=== PATIENT | male | born 1935 | race Caucasian/White ===

== ENCOUNTER → 2018-02-14 | Outpatient (CLI) | payer OTHER ==
[~2018-02-14] MED LIST: ASPI81EC; ATOR10; CITA20; ISOMON30; LISI20; METO50ER; SPIR25; [UNRECOGNIZED DRUG - REMARK]
== END | disposition home or self-care (01) ==
LOC: PLD 10:33 → LAB SHORT 10:33
DX: D22.62 Melanocytic nevi of left upper limb, including shoulder (principal)
CPT/HCPCS: 88305

== ENCOUNTER 2018-11-16 09:48 | Inpatient (IN) | payer OTHER ==
[~2018-11-16] VITALS: Ht 167.6 cm; Wt 80.8 kg
[2018-11-16 10:29] LABS: BASOPHILS ABSOLUTE AUTO 0.02 K/mm3 (0.00-0.23); BASOPHILS PERCENT AUTO 0 % (0-2); EOSINOPHILS PERCENT AUTO 0 % (0-6); Hematocrit 40.1 % (37.0-53.0); IMMATURE GRAN PERCENT AUTO 1 % (0-1); LYMPHOCYTES ABSOLUTE AUTO 0.47 K/mm3 (0.84-5.20); LYMPHOCYTES PERCENT AUTO 3 % (21-46); MONOCYTES ABSOLUTE AUTO 0.76 K/mm3 (0.16-1.47); MONOCYTES PERCENT AUTO 5 % (4-13); Mean Corpuscular HGB 29.6 pg (26.0-34.0); Mean Corpuscular HGB Conc 32.4 g/dL (31.5-36.5); Mean Corpuscular Volume 91 fL (80-100); Mean Platelet Volume 9.7 fL (9.1-12.4); NEUTROPHILS ABSOLUTE AUTO 13.25 K/mm3 (1.96-9.15); NEUTROPHILS PERCENT AUTO 91 % (41-73); Platelet Count 140 K/mm3 (150-400); RDW Standard Deviation 43.8 fL (35.1-46.3); Red Blood Cell Count 4.39 M/mm3 (4.30-5.90)
[2018-11-16 10:57] LABS: Albumin/Globulin Ratio 0.7 (0.8-1.8); Bilirubin, Total 0.7 mg/dL (0.1-1.0); Bun/Creatinine Ratio 16.2 (12.0-20.0); Calcium, Blood 8.9 mg/dL (8.5-10.1); Creatinine, Blood 1.91 mg/dL (0.60-1.20); Globulin, Blood 4.3 g/dL (2.2-4.0); Potassium, Blood 4.6 mmol/L (3.5-5.5); Total Protein, Blood 7.3 g/dL (6.4-8.2)
[2018-11-16 12:11] LABS: Influenza A Negative (NEGATIVE); Influenza B Negative (NEGATIVE)
[2018-11-16] MEDS ORDERED: PRAV20 PO (13:41)
[2018-11-16] MEDS ORDERED: Isosorbide Mono30 MG PO (13:41)
[2018-11-16] MEDS ORDERED: Vitamin D2000 UNIT PO (13:41)
[2018-11-16] MEDS ORDERED: RYTARY ER 23.71 EACH PO (13:42)
[2018-11-16] MEDS ORDERED: ESCI10 PO (13:42)
[2018-11-16] MEDS ORDERED: BACL10 PO (13:43)
[2018-11-16] MEDS ORDERED: TAMS.4ER PO (13:43)
[2018-11-16] MEDS ORDERED: Oyster Shell C500 MG PO (13:43)
[2018-11-16] MEDS ORDERED: Prinivil10 MG PO (13:44)
--- NOTE | 2018-11-16 16:45 | NUR ---
Initial Visit: Palliative Care Consult for Advanced Care Planning. Initial visit was when Pt was still in the ED. Pt is A&Ox1. Pt appears anxious rolling in bed and scooting himself up and down in the bed. When asked if he is having pain he does not respond. PAINAD score is 2/10 due to his constant movement and flailing. No moaning noted at this time. Spoke with Pt's ED nurse Regan and she reports Pt's has been admitted to the hospital as well. Pt transprted to medical floor shortly after initially seeing him. Spoke with Pt's Molly who is admitted to the hospital and discussed goals of care. Molly reports that she is willing to entertain the idea of a higher level of care and hospice but defers the helthcare decisions to Pt's daughter and son. Molly reports that Pt's daughter is currently in his room. Arrived to Pt's room and daughter Precious is present. Pt still disorientatated with a PAINAD score of 2/10. Engaged in therapeutic conversation regarding goals of care for Pt. Listened as daughter discussed Pt's current condition and how he has shown significant decline in the last week. Pt has been refusing food and fluids over the last couple of days. Pt's level of function has also declined and requires assistance with 6/6 ADL's. Educated Precious on disease process indluding current hospital admission diagnosis and prognosis with V/U made. Discussed and educated Precious on code status including risk factor of life sustaining measures. Precious reports that she would like some time to consider options. Discussed care options for Pt and Precious is agreeable to consider a higher level of care for Pt. She is unsure if he qualifies for medicaid and would like some assistance. She also reports that her mother would benefit from a higher level of care. NO other concerns reported at this time. Left message with transitions rn care coordinator Joana with concerns for Pt possibly needing a higher level of care. Plan: Precious will consider Pt's code status. Will place social service referral. Will remain available for therapeutic visits.
--- NOTE | 2018-11-16 17:26 | NUR ---
Late Entry from Previous visit. Pt's daughter Precious phone number [phone]. Pt's son Adarsh [phone]
--- NOTE | 2018-11-16 19:05 | NUR ---
PT NEW ADMIT TO ROOM 312 THIS PM. PT TRANSFERED TO BACK SINGH DUE TO CONFUSION. PT RESTING PEACEFULLY IN BED. CALL LIGHT IN REACH. BED ALARM ON. BED IN LOWEST POSITION. NO OTHER SIGNIFICANT CHANGES THIS SHIFT.
--- NOTE | 2018-11-16 23:21 | NUR ---
POS BLOOD CULT BLOOD CX CAME BACK POSITIVE FOR GRAM NEG BACILLI. PT IS RECIEVING ROCEPHIN ALREADY. PER PHARMACY, ROCEPHIN COVERS GRAM NEG BACILLI.
--- NOTE | 2018-11-17 02:57 | NUR ---
BLADDER SCAN PT IS RESTLESS, AGITATED. ABDOMEN DISTENDED. NO VOID SINCE START OF SHIFT. BLADDER SCAN SHOWS >694 ML. PLACED CALL TO HOSPITALIST FOR ONE TIME STRAIGHT CATH. OUTPUT OF 1200 ML. RECHECK BLADDER SCAN AT 6 HR MARIO, 0800.
[2018-11-17 05:17] LABS: BASOPHILS ABSOLUTE AUTO 0.02 K/mm3 (0.00-0.23); BASOPHILS PERCENT AUTO 0 % (0-2); EOSINOPHILS PERCENT AUTO 0 % (0-6); Hematocrit 36.1 % (37.0-53.0); Hemoglobin 11.8 g/dL (13.5-17.5); IMMATURE GRAN ABSOLUTE AUTO 0.08 K/mm3 (0.00-0.10); IMMATURE GRAN PERCENT AUTO 1 % (0-1); LYMPHOCYTES ABSOLUTE AUTO 0.66 K/mm3 (0.84-5.20); LYMPHOCYTES PERCENT AUTO 5 % (21-46); MONOCYTES ABSOLUTE AUTO 0.69 K/mm3 (0.16-1.47); MONOCYTES PERCENT AUTO 5 % (4-13); Mean Corpuscular HGB 29.9 pg (26.0-34.0); Mean Corpuscular HGB Conc 32.7 g/dL (31.5-36.5); Mean Corpuscular Volume 91 fL (80-100); Mean Platelet Volume 10.3 fL (9.1-12.4); NEUTROPHILS ABSOLUTE AUTO 11.23 K/mm3 (1.96-9.15); NEUTROPHILS PERCENT AUTO 89 % (41-73); Platelet Count 117 K/mm3 (150-400); RDW Standard Deviation 42.7 fL (35.1-46.3); Red Blood Cell Count 3.95 M/mm3 (4.30-5.90); White Blood Cell Count 12.68 K/mm3 (4.00-11.30)
[2018-11-17 05:37] LABS: Bun/Creatinine Ratio 19.5 (12.0-20.0); Calcium, Blood 8.5 mg/dL (8.5-10.1); Creatinine, Blood 1.85 mg/dL (0.60-1.20); Potassium, Blood 3.9 mmol/L (3.5-5.5)
--- NOTE | 2018-11-17 06:34 | NUR ---
SHIFT SUMMARY: PT RESTLESS AND AGITATED AT START OF SHIFT, UNABLE TO VOID AND RETAINING URINE. BLADDER SCAN SHOWS 694 ML. PRN STAIGHT CATH 1X; OUTPUT OF 1200 ML. PT HAS BEEN SLEEPING SINCE STRAIGHT CATH. LACY VEST IN PLACE PT IMPULSIVE AND FALL RISK. LR RUNNING @ 100 ML/HR X 2 BAGS. PT COMPLETING 1ST BAG. WILL CONT TO MONITOR AND PROVIDE CARE.
[2018-11-17 15:31] LABS: Source, Urine Catheter
[2018-11-17 15:51] LABS: Appearance, Urine Turbid (Clear); Bilirubin, Urine Neg (Neg); Blood, Urine 5+ (Neg); Color, Urine Yellow (P-Yellow); Glucose Qualitative, Urine Neg (Neg); Ketones, Urine Neg (Neg); Leukocyte Esterase, Urine 3+ (Neg); Nitrite, Urine Neg (Neg); Protein, Urine 3+ (Neg); Urobilinogen, Urine NORM (Normal)
[2018-11-17 16:07] LABS: White Blood Cells, Urine TNTC /hpf (0-5)
[2018-11-17 16:08] LABS: Bacteria Few /hpf; Squamous Epithelial Cells Not Seen /hpf (Few)
--- NOTE | 2018-11-17 16:48 | NUR ---
POLST POLST SIGNED BY DR CAMPOS, COPIES MADE AND ON CHART, PINK COPY PLACED WITH BELONGINGS AND FAXED TO [facility].
[2018-11-17] MEDS ORDERED: RYTARY ER 36.21 EACH PO (18:03)
--- NOTE | 2018-11-17 18:46 | NUR ---
SHIFT SUMMARY PT AXO TO SELF AND FAMILY. NO ACUTE CHANGES THIS SHIFT, LR RUNNING AT 100ML/HR PER EMAR. BLADDER SCAN REVEALED 406 ML IN. STRAIGHT CATH GOT 680 ML OUT. URINE SENT TO LAB. MED REC COMPLETE, DR CAMPOS AWARE. BED IN LOW POSITION, CALL LIGHT WITHIN REACH. PT IN LACY FOR CONFUSION.
[2018-11-18 05:23] LABS: BASOPHILS ABSOLUTE AUTO 0.01 K/mm3 (0.00-0.23); BASOPHILS PERCENT AUTO 0 % (0-2); EOSINOPHILS PERCENT AUTO 1 % (0-6); Hematocrit 37.1 % (37.0-53.0); Hemoglobin 11.9 g/dL (13.5-17.5); IMMATURE GRAN ABSOLUTE AUTO 0.05 K/mm3 (0.00-0.10); IMMATURE GRAN PERCENT AUTO 1 % (0-1); LYMPHOCYTES ABSOLUTE AUTO 0.76 K/mm3 (0.84-5.20); LYMPHOCYTES PERCENT AUTO 9 % (21-46); MONOCYTES ABSOLUTE AUTO 0.73 K/mm3 (0.16-1.47); MONOCYTES PERCENT AUTO 8 % (4-13); Mean Corpuscular HGB 29.8 pg (26.0-34.0); Mean Corpuscular HGB Conc 32.1 g/dL (31.5-36.5); Mean Corpuscular Volume 93 fL (80-100); NEUTROPHILS ABSOLUTE AUTO 7.34 K/mm3 (1.96-9.15); NEUTROPHILS PERCENT AUTO 82 % (41-73); Platelet Count 124 K/mm3 (150-400); RDW Coefficient Variation 13.2 % (11.7-14.2); RDW Standard Deviation 45.3 fL (35.1-46.3); White Blood Cell Count 8.99 K/mm3 (4.00-11.30)
[2018-11-18 05:40] LABS: Bun/Creatinine Ratio 22.2 (12.0-20.0); Calcium, Blood 8.5 mg/dL (8.5-10.1); Creatinine, Blood 1.94 mg/dL (0.60-1.20); Potassium, Blood 3.9 mmol/L (3.5-5.5)
--- NOTE | 2018-11-18 06:34 | NUR ---
SHIFT SUMMARY: PT IS IN LACY VEST TO PREVENT FALLS, IMPULSIVE AND DOES NOT USE CALL LIGHT. ALERT TO SELF AND SURROUNDINGS. ABLE TO FOLLOW DIRECTIONS AND ANSWER Q'S APPROP. TELE IN PLACE; Olivia liu BBB @ 115. RESP E/U ON RA; LS DIM. PT IS HAVING LOOSE STOOL; THIS IS DAY 2. BLADDER SCAN REVEALS 495 ML. PRN STRAIGHT CATH DONE; 600 ML OUT. POST VOID RESIDUAL OF 54 ML. 1 PER ASSIST TO BSC. MEDS WHOLE c WATER. NO OTHER CHANGES TO REPORT. WILL CONT TO MONITOR AND PROVIDE CARE.
--- NOTE | 2018-11-18 19:05 | NUR ---
SHIFT SUMMARY PT AXO TO SELF, FOLLOWING DIRECTIONS, FAMILY MEMBERS, THOUGH ILIAMNA AND AGGITATED AT TIMES. PT CONTINUES TO REQUIRE LACY FOR ATTEMPTS OOB. IV PATENT AND SALINE LOCKED. PT RUNNING A-FIB ON TELE WITH RATE FROM 120-140'S. SPAR FINISHER CALLED NURSE TO NOTIFY OF RATE THIS AFTERNOON. NURSE THEN CALLED SURVEILLANCE SENSOR OFFICER TO INQUIRE ABOUT RATE AND RHYTHM. AT 181, PT WAS AFIB AT [address] CAMPOS CALLED AT 181 AND THEN AT 182, NEW ORDERS INITIATED. CHARGE NURSE AP MIRANDA NOTIFIED AT 182. CHARGE AND NURSE LOOKED AT PT'S HISTORY AND EKG FROM ADMISSION TO FIND OUT THAT A-FIB IS NEW FOR THIS PATIENT. WHEN CALLING THE SURVEILLANCE SENSOR OFFICER TO FIND OUT WHEN PT CONVERTED, HE STATED THAT THE PT CONVERTED FROM NORMAL SINUS RHYTHM TO A-FIB ON 11/17/18 AT 0241 AND THAT HE DID NOT NOTIFY THE RN AT THAT TIME. RN MAUDE CONFIRMED THAT SHE WAS NOT NOTIFIED. SURVEILLANCE SENSOR OFFICER WAS INES HENRY. THIS SITUATION EXPLAINED TO INSPECTOR OUTSIDE PRODUCTION NURSE WHO ASSUMED CARE AT THAT TIME. BED IN LOW POSITION, CALL LIGHT WITHIN REACH, BED ALARM ON.
--- NOTE | 2018-11-18 19:09 | NUR ---
ON 11/17 @ 0241 PT CONVERTED FROM NSR TO ATRIAL FIBRILLATION VIA TELEMETRY. THIS RN WAS NOT NOTIFIED OF THIS CHANGE.
--- NOTE | 2018-11-18 19:52 | NUR ---
PT BP IS 85/38 c PM VITAL SIGNS. PT IS IN NEW ONSET A FIB c BBB @ 125-130'S. METOPROLOL IS ORDERED TONIGHT FOR RATE CONTROL, BUT BP IS NOT WITHIN PARAMETERS TO GIVE. ATTEMPTED TO PLACE CALL TO HOSPITALIST FOR FURTHER ORDERS; AWAITING CALL FROM DR FERNANDEZ.
--- NOTE | 2018-11-18 20:43 | NUR ---
ATTEMPTED TO CALL HOSPITALIST A 2ND TIME. STILL AWAITING CALL.
--- NOTE | 2018-11-18 22:27 | NUR ---
REACHED DR FERNANDEZ TO REPORT BP. ORDERED 500 CC FLUID BOLUS AND RECHECK BP AFTER. METOPROLOL TO BE HELD THIS PM.
--- NOTE | 2018-11-18 23:31 | NUR ---
FLUID BOLUS COMPLETE. BP RECEHCK IS NOW 117/57. WILL CONT TO MONITOR
[2018-11-19 05:40] LABS: BASOPHILS ABSOLUTE AUTO 0.01 K/mm3 (0.00-0.23); BASOPHILS PERCENT AUTO 0 % (0-2); EOSINOPHILS ABSOLUTE AUTO 0.23 K/mm3 (0.00-0.68); EOSINOPHILS PERCENT AUTO 4 % (0-6); Hematocrit 35.8 % (37.0-53.0); Hemoglobin 11.4 g/dL (13.5-17.5); IMMATURE GRAN ABSOLUTE AUTO 0.01 K/mm3 (0.00-0.10); IMMATURE GRAN PERCENT AUTO 0 % (0-1); LYMPHOCYTES ABSOLUTE AUTO 0.68 K/mm3 (0.84-5.20); LYMPHOCYTES PERCENT AUTO 13 % (21-46); MONOCYTES ABSOLUTE AUTO 0.44 K/mm3 (0.16-1.47); MONOCYTES PERCENT AUTO 8 % (4-13); Mean Corpuscular HGB 29.5 pg (26.0-34.0); Mean Corpuscular HGB Conc 31.8 g/dL (31.5-36.5); Mean Corpuscular Volume 93 fL (80-100); Mean Platelet Volume 10.8 fL (9.1-12.4); NEUTROPHILS ABSOLUTE AUTO 4.04 K/mm3 (1.96-9.15); NEUTROPHILS PERCENT AUTO 75 % (41-73); Platelet Count 142 K/mm3 (150-400); RDW Coefficient Variation 13.6 % (11.7-14.2); RDW Standard Deviation 46.6 fL (35.1-46.3); Red Blood Cell Count 3.87 M/mm3 (4.30-5.90); White Blood Cell Count 5.41 K/mm3 (4.00-11.30)
[2018-11-19 05:53] LABS: Albumin, Blood 2.1 g/dL (3.4-5.0); Anion Gap 10 mmol/L (6-16); Blood Urea Nitrogen 54 mg/dL (8-24); CO2, Blood 25 mmol/L (21-32); Calcium, Blood 8.2 mg/dL (8.5-10.1); Chloride, Blood 106 mmol/L (98-108); Glomerular Filtration Rate 34 (60-); Glucose, Blood 93 mg/dL (70-99); Phosphorus, Blood 3.1 mg/dL (2.5-4.9); Potassium, Blood 3.7 mmol/L (3.5-5.5); Sodium, Blood 141 mmol/L (136-145)
--- NOTE | 2018-11-19 07:44 | NUR ---
SHIFT SUMMARY: PT'S MENTATION HAS IMPROVED SINCE ADMISSION. PT IS A&O X 4. REMAINS IMPULSIVE AND DOES NOT USE CALL LIGHT, LACY VEST IS ON FOR PT SAFETY TO PREVENT FALLS. TELE IN PLACE; A FIB c BBB @ 115. PT DOES HAVE ONE EVENT OF HR INCREASING TO 125-130'S PER PATTERN PERFORATING MACHINE OPERATOR. PT WAS SUPPOSE TO START FIRST DOSE OF METOPROLOL TONIGHT FOR RATE CONTROL, HOWEVER, BP WAS LOW AND NOT WITHIN PARAMETERS TO ADMINISTER. HELD METOPROLOL AND ADMINISTERED FLUID BOLUS PER DR FERNANDEZ ORDERS. SEE PRIOR NOTE. BLADDER SCAN >400 ML TONIGHT; STRAIGHT CATH PER ORDERS; 750 ML OUT. POST VOID RESIDUAL OF 40 ML. PT 1 PER ASSIST TO BSC. NO OTHER CHANGES TO REPORT. WILL CONT TO MONITOR AND PROVIDE CARE UNTIL PRESUMED BY ONCOMING RN.
--- NOTE | 2018-11-19 12:51 | NUR ---
CALLED DIFFICULT TO PLACE STRAIGHT CATH, D/T RESISTANCE ON CATHETER AND DISCOMFORT. 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 REC NEW ORDERS TO PLACE ORTEGA CATH AND WILL PLACE ORDERS FOR FLOMAX.
[2018-11-19 15:40] LABS: Source, Urine Catheter
[2018-11-19 15:53] LABS: Appearance, Urine Hazy (Clear); Bilirubin, Urine Neg (Neg); Blood, Urine 2+ (Neg); Color, Urine Yellow (P-Yellow); Glucose Qualitative, Urine Neg (Neg); Ketones, Urine Neg (Neg); Leukocyte Esterase, Urine 1+ (Neg); Nitrite, Urine Neg (Neg); Protein, Urine 2+ (Neg); Urobilinogen, Urine NORM (Normal)
[2018-11-19 16:24] LABS: Amorphous Light (0-Heavy); Bacteria Few /hpf; Mucus Light (0-Heavy); Red Blood Cells, Urine 0-2 /hpf (0-2); Squamous Epithelial Cells Few /hpf (Few)
--- NOTE | 2018-11-19 20:40 | NUR ---
SHIFT SUMMARY: PT REMAINS IN A LACY VEST HE IS IMPULSIVE AND HAVE ATTEMPTED TO REMOVE VEST T/O DAY. REQUIRES FREQ REORIENTATION TO PLACE AND CONDITION. HE DOESN'T USE CALL LIGHT AND THE CAMERA TECH REPORTED PT DISROBING. VSS. POST VOID RESIDUAL BLADDER SCAN >500 ML. PLACED ORTEGA. PT REPORTS ABD RELIEF AFTER ORTEGA PLACED. ORTEGA IS PATENT AND DRAINING. UA SENT PER PROTOCOL. AFTER WORKING WITH PHYSICAL THERAPY, HE IS A 1 ASSIST WITH FWW/GB. PLAN IS FOR PT TO D/C TO SNF TOMORROW. PT WOULD LIKE [facility].
--- NOTE | 2018-11-20 01:06 | NUR ---
APPROX 0015 STATES FEELS TRAPPED. EXPLAINED REASONING BEHIND LACY. UN-RECEPTIVE. WILL CONTINUE TO RE-INFOCE REASONING.
--- NOTE | 2018-11-20 01:07 | NUR ---
0105 NOTIFIED BY PCU ACADEMIC AFFAIRS DIRECTOR THAT PATIENT HAD COME OFF OF TELE. PATIENT STATES HE IS "GETTING OUT OF HERE ONE WAY OR ANOTHER", STATES "NO NEED TO REPLACE THE STICKERS". THIS RN EDUCATED PATIENT LETTING HIM KNOW THAT PHYSICIAN WANTS HIS HEART RATE MONITORED. STATED HE "HATES FEELING TRAPPED", RE-ENFORCED EARLIER TEACHING ON RESTRAINTS AND WHY IT IS IN PLACE. CONTINUE TO RE-ENFORCE
[2018-11-20 05:35] LABS: Bun/Creatinine Ratio 27.8 (12.0-20.0); Calcium, Blood 8.5 mg/dL (8.5-10.1); Creatinine, Blood 1.69 mg/dL (0.60-1.20); Potassium, Blood 3.8 mmol/L (3.5-5.5)
--- NOTE | 2018-11-20 07:38 | NUR ---
SHIFT SUMMARY ALERT, ABLE TO MAKE NEEDS KNOWN. HOWEVER, NOTED CONFUSION AND FORGETFULNESS AT TIMES. NO C/O PAIN/DISCOMFORT. LACY IN PLACE ORDER ACTIVE. REMAINS ON TELE RUNNING AFIB WITH BBB BETWEEN 90-120's. APPEARED TO REST MUCH OF SHIFT. ORTEGA PATENT AND SECURED. CAMERA ON THROUGHOUT SHIFT; REPORTED TELE LEADS OFF AND DISROBING X1. NO ACUTE CHANGES OVERNIGHT. VSS/AFEBRILE. BED IN LOWEST POSITION. ALARM ON. CALL LIGHT WITHIN REACH. CONTINUED TO MONITOR THROUGHOUT SHIFT. REPORT GIVEN TO ONCOMING RN.
--- NOTE | 2018-11-20 18:46 | NUR ---
SUMM- PT ALERT TO SELF, AND FAMILY, CONFUSED TO CIRCUMSTANCES OF WHY HE IS IN THE HOSPITAL. GETS UP TO CHAIR FOR MEALS. RN INTENTION TO GET PT OUT OF RESTRAINTS, BUT TRIED INTENTLY TO GET OOB WITHOUG ASSIST AND DOESN'T KNOW LIMITS. TOLERATING FOOD AND FLUIDS. ORTEGA IN PLACE, PATENT. PT BECAME AGITATED ESCELATING AROUND [address] LIMA, ORDER FOR SEROQUEL, PT REFUSED. CALL TO SECURITY FOR STANDBY BECAUSE PT ESCELATING VERBAL THREATS TO CUT HIMSELF OUT OF LACY AND GET OUT. JUDY CARTAGENA CAME TO SIT WITH PT FOR ABOUT 2 HOURS, GOT PT UP AND AMBULATED IN HALLS. SAT WITH PT BY THE WINDOW AND PT CALMED WITHOUT MEDS. RN AND PT AGREED TO LEAVE RESTRAINTS OFF FOR THE TIME BEING AND PT REMAINED CALM AND DIRECTABLE. BACK TO BED WITH ALARM, RESTRAINTS CURRENTLY OFF. WILL JENNY CLOSELY. HAS IV D5 AT 75ML/HR. SPOKE WITH SON TWICE TODAY LIBIA- [phone]. WILL REPORT TO DISTRICT AGENT.
[2018-11-21 05:33] LABS: Hematocrit 33.6 % (37.0-53.0); Hemoglobin 10.6 g/dL (13.5-17.5); Mean Corpuscular HGB 28.8 pg (26.0-34.0); Mean Corpuscular HGB Conc 31.5 g/dL (31.5-36.5); Mean Corpuscular Volume 91 fL (80-100); Mean Platelet Volume 10.7 fL (9.1-12.4); Platelet Count 152 K/mm3 (150-400); RDW Coefficient Variation 13.8 % (11.7-14.2); RDW Standard Deviation 46.5 fL (35.1-46.3); Red Blood Cell Count 3.68 M/mm3 (4.30-5.90); White Blood Cell Count 5.44 K/mm3 (4.00-11.30)
--- NOTE | 2018-11-21 05:39 | NUR ---
83 YEAR OLD MALE WITH 2 POSITIVE BLOOD CULTURES AND URINE CULTURE POSITIVE FOR ECOLI CONTINUES CONFUSED AND VERBALLY ABUSIVE AT TIMES. AT OTHER TIMES HE IS COOPERATIVE. PT ACCIDENTLY PULLED OUT HIS IV ACCESS ON DAY SHIFT AND HE HAS 2 L OF IVF FLUIDS RX. ATTEMPTED MULTIPLE TIME FOR IV ACCESS SEVERAL RNS AND UNSUCCESSFUL. PT BECAME VERY AGGITATED WITH 2ND RN DOYLE WHO WAS ATTEMPTING TO START IV. HAS TO PT PT IN LACY VEST TO OPREVENT FALLS AND FURTHER INJURY. AT FIRST AGITATED AND CUSSING BUT THEN EVENTULAYY SLEPT. SEROQUEL 25 MG AT HS WITH MILD HELPFUL EFFECT. ON ASPIRATION PRECAUTIONS WITH MINIMAL ORAL INTAKE. ORTEGA PATENT DRAINS 700 ML OSIEL CLEAR URINE. FAMILY MEMBER SON WAS IN ANDALSO CUSSING.
[2018-11-21 05:54] LABS: Albumin, Blood 2.3 g/dL (3.4-5.0); Anion Gap 6 mmol/L (6-16); Blood Urea Nitrogen 38 mg/dL (8-24); Bun/Creatinine Ratio 24.4 (12.0-20.0); CO2, Blood 27 mmol/L (21-32); Calcium, Blood 8.4 mg/dL (8.5-10.1); Chloride, Blood 112 mmol/L (98-108); Creatinine, Blood 1.56 mg/dL (0.60-1.20); Glomerular Filtration Rate 45 (60-); Glucose, Blood 89 mg/dL (70-99); Phosphorus, Blood 3.7 mg/dL (2.5-4.9); Potassium, Blood 3.6 mmol/L (3.5-5.5); Sodium, Blood 145 mmol/L (136-145)
--- NOTE | 2018-11-21 11:00 | NUR ---
PT RESTING WITH EYES CLOSED EASILY AROUSED BY VERBAL STIMULI. REFUSED MEDICATIONS THIS MORNING "I'M SLEEPING".
--- NOTE | 2018-11-21 18:18 | NUR ---
SHIFT SUMMARY SLEPT THROUGHOUT SHIFT. TOOK SMALL SIPS OF WATER THROUGHOUT DAY. DID NOT EAT BREAKFAST OR LUNCH. CONFUSED. PARANOID BUT CALM AND COOPERATIVE FOR MOST OF SHIFT. ORTEGA IN PLACE.
--- NOTE | 2018-11-21 21:48 | NUR ---
THIS NURSE OFFERED X3 TO GIVE MEDS AND PATIENT REFUSED TO TAKE ANY TONIGHT
--- NOTE | 2018-11-22 04:16 | NUR ---
83 Y/O MALE RESTED COMFORTABLY IN BED ALL EVENING, PT REFUSED TO TAKE ANY HS MEDS AND STATED, "GET THE HECK OUT MY ROOM WITH PROFANITY LACED LANGUAGE". PTS APPEARS TO BE NO PAIN. PTS CALL LIGHT AT SIDE, BED IN LOW POSITION, BED ALARM ON WHILE PT IN LACY VEST.
[2018-11-22 05:29] LABS: BASOPHILS ABSOLUTE AUTO 0.02 K/mm3 (0.00-0.23); BASOPHILS PERCENT AUTO 0 % (0-2); EOSINOPHILS ABSOLUTE AUTO 0.29 K/mm3 (0.00-0.68); EOSINOPHILS PERCENT AUTO 4 % (0-6); Hematocrit 33.9 % (37.0-53.0); Hemoglobin 10.5 g/dL (13.5-17.5); IMMATURE GRAN ABSOLUTE AUTO 0.07 K/mm3 (0.00-0.10); IMMATURE GRAN PERCENT AUTO 1 % (0-1); LYMPHOCYTES ABSOLUTE AUTO 1.12 K/mm3 (0.84-5.20); LYMPHOCYTES PERCENT AUTO 17 % (21-46); MONOCYTES ABSOLUTE AUTO 0.46 K/mm3 (0.16-1.47); MONOCYTES PERCENT AUTO 7 % (4-13); Mean Corpuscular HGB 28.5 pg (26.0-34.0); Mean Corpuscular Volume 92 fL (80-100); Mean Platelet Volume 10.7 fL (9.1-12.4); NEUTROPHILS ABSOLUTE AUTO 4.58 K/mm3 (1.96-9.15); NEUTROPHILS PERCENT AUTO 70 % (41-73); Platelet Count 177 K/mm3 (150-400); RDW Coefficient Variation 13.8 % (11.7-14.2); RDW Standard Deviation 46.6 fL (35.1-46.3); Red Blood Cell Count 3.68 M/mm3 (4.30-5.90); White Blood Cell Count 6.54 K/mm3 (4.00-11.30)
[2018-11-22 05:52] LABS: Albumin, Blood 2.3 g/dL (3.4-5.0); Anion Gap 8 mmol/L (6-16); Blood Urea Nitrogen 37 mg/dL (8-24); CO2, Blood 26 mmol/L (21-32); Calcium, Blood 8.6 mg/dL (8.5-10.1); Chloride, Blood 115 mmol/L (98-108); Creatinine, Blood 1.54 mg/dL (0.60-1.20); Glomerular Filtration Rate 46 (60-); Glucose, Blood 98 mg/dL (70-99); Potassium, Blood 4.1 mmol/L (3.5-5.5); Sodium, Blood 149 mmol/L (136-145)
--- NOTE | 2018-11-22 16:57 | NUR ---
PATIENT A/OX4, UP WITH FWW AND SBA. RESTRAINTS REMOVED THIS AM [id number]. PATIENT HAS BEEN CALM AND USING CALL LIGHT APPROPRIATELY. PATIENT REFUSED MEDICATIONS LAST NIGHT AND THIS AM, DR. LIMA NOTIFIED. PATIENT DENIES ANY PAIN. HOPES TO GO HOME WITH FAMILY. ORTEGA D/C TODAY, PATIENT HAS VOIDED 2X SINCE. SKIN INTACT. VSS THIS SHIFT. NO IV SITE.
--- NOTE | 2018-11-23 03:57 | NUR ---
83 Y/O MALE RESTING COMFORTABLY IN BED ALL NIGHT. PT DENIES PAIN/NAUSEA. PT ALERT AND ORIENTED X 2, ABLE TO FOLLOW SIMPLE VERBAL COMMANDS. PTS BED LOW POSITION AND CALL LIGHT AT SIDE.
--- NOTE | 2018-11-23 19:43 | NUR ---
PATIENT MUCH MORE COOPERATIVE WITH CARE THIS SHIFT. ABLE TO GET OOB WITH SBA TO RESTROOM. PATIENT HAD BM TODAY AND IS VOIDING WELL. NO IV SITE, TAKING ORAL ABX. VSS THIS SHIFT. LUNGS CLEAR, ON RA. TOLERATING SOFT DIET. TAKES PILLS WHOLE WITH WATER. SKIN INTACT. AWAITING PLACEMENT. NO ACUTE CHANGES THIS SHIFT.
[2018-11-24 05:21] LABS: BASOPHILS ABSOLUTE AUTO 0.02 K/mm3 (0.00-0.23); BASOPHILS PERCENT AUTO 1 % (0-2); EOSINOPHILS ABSOLUTE AUTO 0.29 K/mm3 (0.00-0.68); EOSINOPHILS PERCENT AUTO 7 % (0-6); Hemoglobin 10.5 g/dL (13.5-17.5); IMMATURE GRAN ABSOLUTE AUTO 0.17 K/mm3 (0.00-0.10); IMMATURE GRAN PERCENT AUTO 4 % (0-1); LYMPHOCYTES ABSOLUTE AUTO 1.08 K/mm3 (0.84-5.20); LYMPHOCYTES PERCENT AUTO 25 % (21-46); MONOCYTES ABSOLUTE AUTO 0.42 K/mm3 (0.16-1.47); MONOCYTES PERCENT AUTO 10 % (4-13); Mean Corpuscular HGB 28.8 pg (26.0-34.0); Mean Corpuscular HGB Conc 30.9 g/dL (31.5-36.5); Mean Corpuscular Volume 93 fL (80-100); Mean Platelet Volume 9.9 fL (9.1-12.4); NEUTROPHILS PERCENT AUTO 54 % (41-73); Platelet Count 211 K/mm3 (150-400); RDW Coefficient Variation 13.4 % (11.7-14.2); Red Blood Cell Count 3.64 M/mm3 (4.30-5.90); White Blood Cell Count 4.28 K/mm3 (4.00-11.30)
[2018-11-24 05:42] LABS: Albumin, Blood 2.4 g/dL (3.4-5.0); Anion Gap 8 mmol/L (6-16); Blood Urea Nitrogen 29 mg/dL (8-24); CO2, Blood 27 mmol/L (21-32); Calcium, Blood 8.6 mg/dL (8.5-10.1); Chloride, Blood 110 mmol/L (98-108); Creatinine, Blood 1.45 mg/dL (0.60-1.20); Glomerular Filtration Rate 49 (60-); Glucose, Blood 104 mg/dL (70-99); Phosphorus, Blood 3.3 mg/dL (2.5-4.9); Potassium, Blood 3.9 mmol/L (3.5-5.5); Sodium, Blood 145 mmol/L (136-145)
--- NOTE | 2018-11-24 07:31 | NUR ---
NOC SHIFT SUMMARY NO ACUTE CHANGED THIS SHIFT. PT WALKS EASILY TO BATHROOM AND BACK. PLEASANT AND COOPERATIVE WITH CARE. REPORT TO ONCOMING NURSE
--- NOTE | 2018-11-24 18:28 | NUR ---
PATIENT WAS WALKING THE HALLS TODAY . HE IS ANXIOUS TO LEAVE AND TOLD THIS NURSE HE PLANS ON WALKING OUT MONDAY IF HE ISNT RELEASED. HE IS COOPERATIVE WITH CARES, IS EASILY REDIRECTED AND PLEASANT WITH STAFF. HE DOES BEST WHEN REMINDED WHY HE IS HERE AND WHY HE IS TAKING THE MEDICATIONS HE IS . NO ISSUES THIS SHIFT.
--- NOTE | 2018-11-25 04:41 | NUR ---
NOC SHIFT SUMMARY PT PLEASANT AND COOPERATIVE WITH CARE. NO ACUTE CHANGES NOTED THIS SHIFT. HAS SLEPT MOST OF NIGHT RESTFULLY. HE DOES CONTINUE TO BE CONFUSED. APPEARS IN NO ACUTE DISTRESS. WILL CONTINUE TO MONITOR.
--- NOTE | 2018-11-25 16:19 | NUR ---
PATIENT HAS HAD FAMILY AT BEDSIDE. HE CONTINUES TO BE ANXIOUS TO LEAVE THE HOSPITAL. HE IS PLEASANT AND COOPERATIVE WITH STAFF. NO COMPLAINTS OF PAIN, SOB OR NV.
--- NOTE | 2018-11-26 07:26 | NUR ---
NOC SHIFT SUMMARY PT HAS BEEN PLEASANT AND COOPERATIVE WITH CARE. NO ACUTE CHANGES THIS NIGHT. SLEPT MOST OF NIGHT RESTFULLY. REPORT ON ONCOMING RN.
--- NOTE | 2018-11-26 17:07 | NUR ---
SUMMARY PT HAS BEEN DRESSED IN STREET CLOTHES SINCE ONSET OF SHIFT, HE DECLINES TO CHANGE INTO HOSP GOWN OR PJ. HE HAS BEEN PLEASANT, SOMEWHAT CONFUSED R/T EVENTS/TIME. HX DEMENTIA & PARKINSONS. FOLLOWS DIRECTION GENERALLY HOWEVER HAS @ X'S DECLINED PARTICIPATION WITH PT/OT. HE IS SBA TO BR. FAMILY MEMBERS HAVE CALLED TODAY WITH CONCERNS R/T D/C, PANTRY GOODS WORKER ASSISTING TO ANSWER THEIR QUESTIONS & ARRANGE SAFE D/C, PLAN @ THIS TIME FOR SNF. VSS
--- NOTE | 2018-11-27 05:39 | NUR ---
SUMMARY: PT A/OX2 BUT REMAINS DRESSED IN STREET CLOTHES AND SAYS "HE JUST WANTS TO BE READY TO GO HOME". HE IS CONFUSED TO SITUATION/TIME AND INITIALLY SEEMED SKEPTICAL OF NEW STAFF. HE CALMED W/CONVERSATION THOUGH AND THEN WAS PLEASANT AND COOPERATIVE W/CARE T/O NOCTE. PT WAS UP AD KARTHIKEYAN TO TOILET, DENIED PAIN/COMPLAINTS AND SLEPT MAJORITY OF SHIFT. NO ACUTE CHANGES, VSS/AFEBRILE. WILL MONITOR AND REPORT TO DAY RN. PHYSICIAN OFFICE CLIN ASST HELPING W/SAFE D/C PLANNING TO SNF AT THIS TIME.
[2018-11-27] MEDS ORDERED: Lopressor 25 mg25 MG PO (11:50)
[2018-11-27] MEDS ORDERED: CEFU500T30 PO (11:51)
[2018-11-27] MEDS ORDERED: QUET25 PO (11:53)
[2018-11-27] MEDS ORDERED: TAMS.4ER PO (11:53)
[2018-11-27] MEDS ORDERED: ACIDOPHILUS1 EACH PO (11:57)
--- NOTE | 2018-11-27 13:11 | NUR ---
DISCHARGE SHIELAHER IN FOR RODOLFO THIS AM, PT AMBULATE AROUND UNIT INDEPENDANTLY. DR DEL RIO IN, PLACE D/C HOME ORDER WITH HOME HEALTH. DIYA, CIRCUS ARTIST NOTIFY FAMILY & MAKE ARRANGEMENTS FOR W/C VAN TRANSPORT. PT IS A/O X2, SOMEWHAT FORGETFUL. D/C INSTRUCT REVIEWED WITH PT & WITH EMPHASIS ON F/U WITH PCP. PT/ EXPRESS APPRECIATION, VERY PLEASANT.
== END 2018-11-27 13:43 | disposition home or self-care (01) | DRG 871 ==
LOC: ER 09:48 → MEDS 12:52 → ENPENDDIS 11-27 10:35 → MEDS 11-27 13:43
PROVIDERS: Emergency Medicine; Internal Medicine; ADMIT Internal Medicine
DX: A41.51 Sepsis due to Escherichia coli [E. coli] (principal); G92 Toxic encephalopathy; J18.9 Pneumonia, unspecified organism; N17.9 Acute kidney failure, unspecified; E87.0 Hyperosmolality and hypernatremia; N39.0 Urinary tract infection, site not specified; Z51.5 Encounter for palliative care; E78.5 Hyperlipidemia, unspecified; F32.9 Major depressive disorder, single episode, unspecified; E86.0 Dehydration; G20 Parkinson's disease; I25.10 Atherosclerotic heart disease of native coronary artery without angina pectoris; I12.9 Hypertensive chronic kidney disease with stage 1 through stage 4 chronic kidney disease, or unspecified chronic kidney disease; N18.3 Chronic kidney disease, stage 3 (moderate); I48.0 Paroxysmal atrial fibrillation; G31.83 Neurocognitive disorder with Lewy bodies; F02.80 Dementia in other diseases classified elsewhere, unspecified severity, without behavioral disturbance, psychotic disturbance, mood disturbance, and anxiety; N40.1 Benign prostatic hyperplasia with lower urinary tract symptoms; R62.7 Adult failure to thrive
CPT/HCPCS: 36415; 51701; 51702; 51798; 71046; 71250; 76770; 80048; 80053; 80069; 81001; 83605; 83735; 84145; 85025; 85027; 87040; 87077; 87086; 87186; 87804; 92610; 93005; 93010; 93306; 96361-59; 96374-59; 97110; 97116; 97162; 97166; 97530; 97535; 99285-25; J0456; J0696; J1650; J7030; J7050; J7070; J7120

== ENCOUNTER 2019-03-24 09:21 | Emergency (ER) | payer OTHER ==
[~2019-03-24] VITALS: Ht 175.3 cm; Wt 78.0 kg
[~2019-03-24 09:21] MED LIST changes: +ACIDOPHILUS1 EACH PO; +BACL10 PO; +CEFU500T30 PO; +ESCI10 PO; +Isosorbide Mono30 MG PO; +Lopressor 25 mg25 MG PO; +Oyster Shell C500 MG PO; +PRAV20 PO; +Prinivil10 MG PO; +QUET25 PO; +RYTARY ER 23.71 EACH PO; +RYTARY ER 36.21 EACH PO; +TAMS.4ER PO; +Vitamin D2000 UNIT PO
[2019-03-24 10:24] LABS: Source, Urine Catheter
[2019-03-24 10:28] LABS: BASOPHILS ABSOLUTE AUTO 0.03 K/mm3 (0.00-0.23); BASOPHILS PERCENT AUTO 0 % (0-2); EOSINOPHILS ABSOLUTE AUTO 0.24 K/mm3 (0.00-0.68); EOSINOPHILS PERCENT AUTO 3 % (0-6); Hematocrit 46.4 % (37.0-53.0); Hemoglobin 14.9 g/dL (13.5-17.5); IMMATURE GRAN ABSOLUTE AUTO 0.02 K/mm3 (0.00-0.10); IMMATURE GRAN PERCENT AUTO 0 % (0-1); LYMPHOCYTES ABSOLUTE AUTO 2.06 K/mm3 (0.84-5.20); LYMPHOCYTES PERCENT AUTO 29 % (21-46); MONOCYTES ABSOLUTE AUTO 0.46 K/mm3 (0.16-1.47); MONOCYTES PERCENT AUTO 7 % (4-13); Mean Corpuscular HGB 28.1 pg (26.0-34.0); Mean Corpuscular HGB Conc 32.1 g/dL (31.5-36.5); Mean Corpuscular Volume 87 fL (80-100); Mean Platelet Volume 9.8 fL (9.1-12.4); NEUTROPHILS ABSOLUTE AUTO 4.27 K/mm3 (1.96-9.15); NEUTROPHILS PERCENT AUTO 60 % (41-73); Platelet Count 143 K/mm3 (150-400); RDW Coefficient Variation 12.8 % (11.7-14.2); RDW Standard Deviation 41.1 fL (35.1-46.3); Red Blood Cell Count 5.31 M/mm3 (4.30-5.90); White Blood Cell Count 7.08 K/mm3 (4.00-11.30)
[2019-03-24 10:29] LABS: Bilirubin, Urine Neg (Neg); Blood, Urine Neg (Neg); Glucose Qualitative, Urine Neg (Neg); Ketones, Urine Neg (Neg); Leukocyte Esterase, Urine Neg (Neg); Nitrite, Urine Neg (Neg); Protein, Urine 2+ (Neg); Urobilinogen, Urine NORM (Normal)
[2019-03-24 10:32] LABS: Appearance, Urine Clear (Clear); Color, Urine Yellow (P-Yellow)
[2019-03-24 10:36] LABS: Bacteria Not Seen /hpf; Red Blood Cells, Urine Not Seen /hpf (0-2); Squamous Epithelial Cells Not Seen /hpf (Few); White Blood Cells, Urine 0-2 /hpf (0-5); Yeast/Fungi Urine Mod /hpf
[2019-03-24 10:50] LABS: Albumin, Blood 3.7 g/dL (3.4-5.0); Bilirubin, Total 1.1 mg/dL (0.1-1.0); Bun/Creatinine Ratio 15.3 (12.0-20.0); Calcium, Blood 9.3 mg/dL (8.5-10.1); Creatinine, Blood 1.24 mg/dL (0.60-1.20); Globulin, Blood 3.7 g/dL (2.2-4.0); Potassium, Blood 4.3 mmol/L (3.5-5.5); Total Protein, Blood 7.4 g/dL (6.4-8.2)
[2019-03-24] MEDS ORDERED: Flomax0.4 MG PO (11:30)
[2019-03-24] MEDS ORDERED: FLUC200 PO (11:30)
== END 2019-03-24 11:37 | disposition home or self-care (01) ==
LOC: ER 09:21
PROVIDERS: Physician Assistant
DX: R82.79 Other abnormal findings on microbiological examination of urine (principal); Z88.6 Allergy status to analgesic agent; Z88.8 Allergy status to other drugs, medicaments and biological substances; Z88.1 Allergy status to other antibiotic agents; Z79.899 Other long term (current) drug therapy; I10 Essential (primary) hypertension; Z87.891 Personal history of nicotine dependence
CPT/HCPCS: 36415; 51702; 51798; 80053; 81001; 83605; 85025; 87040; 87086; 87106; 99283-25

== ENCOUNTER → 2019-09-26 | Outpatient (CLI) | payer OTHER ==
[~2019-09-26] MED LIST changes: +FLUC200 PO; +Flomax0.4 MG PO
[2019-09-26 18:53] LABS: Bilirubin, Urine Neg (Neg); Blood, Urine Neg (Neg); Glucose Qualitative, Urine Neg (Neg); Ketones, Urine Neg (Neg); Leukocyte Esterase, Urine 1+ (Neg); Nitrite, Urine Neg (Neg); Protein, Urine 1+ (Neg); Specific Gravity, Urine 1.015 (1.003-1.022); Urobilinogen, Urine NORM (Normal)
[2019-09-26 19:13] LABS: Appearance, Urine Clear (Clear); Color, Urine Yellow (P-Yellow)
[2019-09-26 19:15] LABS: Bacteria Few /hpf; Red Blood Cells, Urine 0-2 /hpf (0-2); Squamous Epithelial Cells Few /hpf (Few); Yeast/Fungi Urine Rare /hpf
[2019-09-26 21:23] LABS: Protein, Urine Random 25.1 mg/dL (0.0-11.9)
== END ==
LOC: LAB SHORT 14:22 → LAB SRC 14:22
PROVIDERS: Internal Medicine
DX: N18.3 Chronic kidney disease, stage 3 (moderate) (principal)
CPT/HCPCS: 81001; 82570; 84156

== ENCOUNTER → 2020-08-20 | Outpatient (CLI) | payer OTHER ==
[2020-08-20 13:33] LABS: Appearance, Urine Clear (Clear); Bilirubin, Urine Neg (Neg); Blood, Urine Neg (Neg); Color, Urine Yellow (P-Yellow); Glucose Qualitative, Urine Neg (Neg); Ketones, Urine Neg (Neg); Leukocyte Esterase, Urine 2+ (Neg); Nitrite, Urine Neg (Neg); Protein, Urine 1+ (Neg); Specific Gravity, Urine 1.015 (1.003-1.022); Urobilinogen, Urine NORM (Normal)
[2020-08-20 13:47] LABS: Bacteria Few /hpf; Red Blood Cells, Urine 0-2 /hpf (0-2); Squamous Epithelial Cells Few /hpf (Few)
== END | disposition home or self-care (01) ==
LOC: PLD 12:46
PROVIDERS: Nurse Practitioner Family
DX: R30.0 Dysuria (principal)
CPT/HCPCS: 81001; 87086

== ENCOUNTER 2022-02-04 18:03 | Emergency (ER) | payer OTHER ==
[~2022-02-04] VITALS: Ht 182.9 cm; Wt 81.7 kg
[~2022-02-04 18:03] MED LIST changes: -CEFD300 PO
[2022-02-04 18:57] LABS: BASOPHILS ABSOLUTE AUTO 0.02 K/mm3 (0.00-0.23); BASOPHILS PERCENT AUTO 0 % (0-2); EOSINOPHILS PERCENT AUTO 4 % (0-6); Hematocrit 41.1 % (37.0-53.0); Hemoglobin 13.5 g/dL (13.5-17.5); IMMATURE GRAN ABSOLUTE AUTO 0.02 K/mm3 (0.00-0.10); IMMATURE GRAN PERCENT AUTO 0 % (0-1); LYMPHOCYTES ABSOLUTE AUTO 1.26 K/mm3 (0.84-5.20); LYMPHOCYTES PERCENT AUTO 25 % (21-46); MONOCYTES PERCENT AUTO 8 % (4-13); Mean Corpuscular HGB 28.8 pg (26.0-34.0); Mean Corpuscular HGB Conc 32.8 g/dL (31.5-36.5); Mean Corpuscular Volume 88 fL (80-100); Mean Platelet Volume 9.7 fL (9.1-12.4); NEUTROPHILS ABSOLUTE AUTO 3.16 K/mm3 (1.96-9.15); NEUTROPHILS PERCENT AUTO 62 % (41-73); Platelet Count 134 K/mm3 (150-400); RDW Coefficient Variation 12.6 % (11.7-14.2); RDW Standard Deviation 40.4 fL (35.1-46.3); Red Blood Cell Count 4.68 M/mm3 (4.30-5.90); White Blood Cell Count 5.06 K/mm3 (4.00-11.30)
[2022-02-04 19:10] LABS: Albumin, Blood 3.2 g/dL (3.4-5.0); Albumin/Globulin Ratio 0.9 (0.8-1.8); Bilirubin, Total 0.6 mg/dL (0.1-1.0); Bun/Creatinine Ratio 15.3 (12.0-20.0); Calcium, Blood 8.9 mg/dL (8.5-10.1); Creatinine, Blood 1.37 mg/dL (0.60-1.20); Globulin, Blood 3.4 g/dL (2.2-4.0); Potassium, Blood 4.2 mmol/L (3.5-5.5); Total Protein, Blood 6.6 g/dL (6.4-8.2)
[2022-02-04 20:31] LABS: Source, Urine Clean Catch
[2022-02-04 20:51] LABS: Bilirubin, Urine Neg (Neg); Blood, Urine 2+ (Neg); Glucose Qualitative, Urine Neg (Neg); Ketones, Urine Neg (Neg); Leukocyte Esterase, Urine 1+ (Neg); Nitrite, Urine Neg (Neg); Protein, Urine 2+ (Neg); Specific Gravity, Urine 1.015 (1.003-1.022); Urobilinogen, Urine 1+ (Normal)
[2022-02-04 21:00] LABS: Color, Urine Yellow (P-Yellow)
[2022-02-04 21:01] LABS: Appearance, Urine Hazy (Clear); Bacteria Few /hpf; Red Blood Cells, Urine 0-2 /hpf (0-2); Squamous Epithelial Cells Few /hpf (Few)
[2022-02-04] MEDS ORDERED: CEFD300 PO (21:13)
== END 2022-02-04 22:29 | disposition home or self-care (01) ==
LOC: ER 18:03
PROVIDERS: Physician Assistant
DX: N39.0 Urinary tract infection, site not specified (principal); G20 Parkinson's disease; F02.80 Dementia in other diseases classified elsewhere, unspecified severity, without behavioral disturbance, psychotic disturbance, mood disturbance, and anxiety; I10 Essential (primary) hypertension; E78.5 Hyperlipidemia, unspecified; Z79.899 Other long term (current) drug therapy; Z88.6 Allergy status to analgesic agent; Z88.8 Allergy status to other drugs, medicaments and biological substances; Z87.891 Personal history of nicotine dependence
CPT/HCPCS: 36415; 70450; 71045; 80053; 81001; 83605; 84484; 85025; 93005; 93010

== ENCOUNTER → 2022-02-04 | Outpatient (CLI) | payer OTHER ==
[~2022-02-04] MED LIST changes: +CEFD300 PO
[2022-02-04 16:02] LABS: BASOPHILS ABSOLUTE AUTO 0.03 K/mm3 (0.00-0.23); BASOPHILS PERCENT AUTO 1 % (0-2); EOSINOPHILS ABSOLUTE AUTO 0.18 K/mm3 (0.00-0.68); EOSINOPHILS PERCENT AUTO 3 % (0-6); Hematocrit 42.6 % (37.0-53.0); Hemoglobin 14.1 g/dL (13.5-17.5); IMMATURE GRAN ABSOLUTE AUTO 0.01 K/mm3 (0.00-0.10); IMMATURE GRAN PERCENT AUTO 0 % (0-1); LYMPHOCYTES ABSOLUTE AUTO 1.35 K/mm3 (0.84-5.20); LYMPHOCYTES PERCENT AUTO 21 % (21-46); MONOCYTES ABSOLUTE AUTO 0.46 K/mm3 (0.16-1.47); MONOCYTES PERCENT AUTO 7 % (4-13); Mean Corpuscular HGB 28.9 pg (26.0-34.0); Mean Corpuscular HGB Conc 33.1 g/dL (31.5-36.5); Mean Corpuscular Volume 87 fL (80-100); Mean Platelet Volume 9.8 fL (9.1-12.4); NEUTROPHILS ABSOLUTE AUTO 4.29 K/mm3 (1.96-9.15); NEUTROPHILS PERCENT AUTO 68 % (41-73); Platelet Count 145 K/mm3 (150-400); RDW Coefficient Variation 12.9 % (11.7-14.2); RDW Standard Deviation 40.9 fL (35.1-46.3); Red Blood Cell Count 4.88 M/mm3 (4.30-5.90); White Blood Cell Count 6.32 K/mm3 (4.00-11.30)
[2022-02-04 16:24] LABS: Albumin, Blood 3.4 g/dL (3.4-5.0); Bilirubin, Total 0.8 mg/dL (0.1-1.0); Bun/Creatinine Ratio 13.5 (12.0-20.0); Calcium, Blood 9.1 mg/dL (8.5-10.1); Creatinine, Blood 1.63 mg/dL (0.60-1.20); Globulin, Blood 3.5 g/dL (2.2-4.0); Potassium, Blood 4.3 mmol/L (3.5-5.5); Thyroid Stimulating Hormone 0.928 uIU/mL (0.360-4.800); Total Protein, Blood 6.9 g/dL (6.4-8.2)
== END | disposition home or self-care (01) ==
LOC: LAB SHORT 15:56 → LAB 15:56
PROVIDERS: Chiropractor
DX: R53.83 Other fatigue (principal)
CPT/HCPCS: 80053; 84443; 84484; 85025

== ENCOUNTER 2022-06-01 16:17 | Inpatient (IN) | payer OTHER ==
[~2022-06-01] VITALS: Ht 172.7 cm; Wt 81.0 kg
[~2022-06-01 16:17] MED LIST changes: +CEFD300 PO
[2022-06-01 16:59] LABS: BASOPHILS ABSOLUTE AUTO 0.02 K/mm3 (0.00-0.23); BASOPHILS PERCENT AUTO 0 % (0-2); EOSINOPHILS ABSOLUTE AUTO 0.26 K/mm3 (0.00-0.68); EOSINOPHILS PERCENT AUTO 5 % (0-6); Hemoglobin 12.6 g/dL (13.5-17.5); IMMATURE GRAN ABSOLUTE AUTO 0.01 K/mm3 (0.00-0.10); IMMATURE GRAN PERCENT AUTO 0 % (0-1); LYMPHOCYTES ABSOLUTE AUTO 1.25 K/mm3 (0.84-5.20); LYMPHOCYTES PERCENT AUTO 24 % (21-46); MONOCYTES ABSOLUTE AUTO 0.46 K/mm3 (0.16-1.47); MONOCYTES PERCENT AUTO 9 % (4-13); Mean Corpuscular HGB 29.1 pg (26.0-34.0); Mean Corpuscular HGB Conc 32.3 g/dL (31.5-36.5); Mean Corpuscular Volume 90 fL (80-100); Mean Platelet Volume 9.9 fL (9.1-12.4); NEUTROPHILS ABSOLUTE AUTO 3.26 K/mm3 (1.96-9.15); NEUTROPHILS PERCENT AUTO 62 % (41-73); Platelet Count 159 K/mm3 (150-400); RDW Coefficient Variation 13.1 % (11.7-14.2); RDW Standard Deviation 43.3 fL (35.1-46.3); Red Blood Cell Count 4.33 M/mm3 (4.30-5.90); White Blood Cell Count 5.26 K/mm3 (4.00-11.30)
[2022-06-01 17:17] LABS: Albumin, Blood 3.4 g/dL (3.4-5.0); Albumin/Globulin Ratio 1.1 (0.8-1.8); Bilirubin, Total 0.7 mg/dL (0.1-1.0); Calcium, Blood 9.4 mg/dL (8.5-10.1); Creatinine, Blood 1.45 mg/dL (0.60-1.20); Globulin, Blood 3.2 g/dL (2.2-4.0); Total Protein, Blood 6.6 g/dL (6.4-8.2)
[2022-06-01 17:40] LABS: Source, Urine Clean Catch
[2022-06-01 17:56] LABS: Appearance, Urine Hazy (Clear); Bilirubin, Urine Neg (Neg); Blood, Urine 2+ (Neg); Color, Urine Yellow (P-Yellow); Glucose Qualitative, Urine Neg (Neg); Ketones, Urine Neg (Neg); Leukocyte Esterase, Urine 3+ (Neg); Nitrite, Urine Neg (Neg); Protein, Urine 3+ (Neg); Urobilinogen, Urine NORM (Normal)
[2022-06-01 18:41] LABS: White Blood Cells, Urine 50-100 /hpf (0-5)
[2022-06-01 18:42] LABS: Yeast/Fungi Urine Rare /hpf
[2022-06-01 18:44] LABS: Bacteria Many /hpf; Squamous Epithelial Cells Rare /hpf (Few)
[2022-06-01 18:45] LABS: Mucus Light (0-Heavy)
[2022-06-02 01:17] LABS: Source, Urine Foley catheter
[2022-06-02 01:19] LABS: Bilirubin, Urine Neg (Neg); Blood, Urine 3+ (Neg); Glucose Qualitative, Urine Neg (Neg); Ketones, Urine Neg (Neg); Leukocyte Esterase, Urine 1+ (Neg); Nitrite, Urine Neg (Neg); Protein, Urine 2+ (Neg); Urobilinogen, Urine NORM (Normal)
[2022-06-02 01:39] LABS: Appearance, Urine Clear (Clear); Color, Urine Pale Yellow (P-Yellow)
[2022-06-02 01:40] LABS: Bacteria Not Seen /hpf; Squamous Epithelial Cells Not Seen /hpf (Few); Yeast/Fungi Urine Few /hpf
[2022-06-02] MEDS ORDERED: METOPROLOL SUCC25 MG PO (01:47)
[2022-06-02] MEDS ORDERED: RYTARY ER 61.21 EAC1 PO (01:47)
[2022-06-02] MEDS ORDERED: ESCI20 PO (01:48)
[2022-06-02] MEDS ORDERED: LATA.005SO BOTHEYES (01:48)
--- NOTE | 2022-06-02 04:42 | NUR ---
SHIFT SUMMARY PT NEW ED ADMIT THIS EVENING. VERY CONFUSED. ALERT TO SELF ONLY. YELLS PROFANITY AT STAFF WHEN ATTEMPTING CARE BUT OTHERWISE HAS NOT COMMUNICATED. WILL SAY YES TO HIS NAME. WILL NOT ANSWER ANY OTHER QUESTIONS. PT SWINGING AND KICKING AT STAFF WHEN PROVIDING CARE AND PULLING ON TUBES AND LINES. PT PLACED IN LACY VEST, BILATERAL SOFT RESTRAINTS, AND WITH 4 RAILS UP. ZYPREXA GIVEN PER ORDERS WITH LITTLE EFFECT. ONE TIME DOSE OF IV ATIVAN FINALLY HELPED TO CALM PT. BLADDER SCAN THIS EVENING READING >857 MLS. ORTEGA CATH PLACED PER ORDERS WITH 900 MLS OUT. PT WITH SOME HTN BUT DIFFICULT TO KNOW HOW ACCURATE THE READING WAS PT VERY TENSE AND WOULD NOT RELAX WHENEVER ATTEMPTING VITAL SIGNS. PT STILL PULLING LIGHTLY INTERMITTENTLY ON RESTRAINTS BUT MOSTLY RESTING WHEN LEFT ALONE. WILL CONTINUE TO MONITOR.
[2022-06-02 05:54] LABS: BASOPHILS ABSOLUTE AUTO 0.03 K/mm3 (0.00-0.23); BASOPHILS PERCENT AUTO 0 % (0-2); EOSINOPHILS ABSOLUTE AUTO 0.19 K/mm3 (0.00-0.68); EOSINOPHILS PERCENT AUTO 3 % (0-6); Hematocrit 39.6 % (37.0-53.0); Hemoglobin 12.7 g/dL (13.5-17.5); IMMATURE GRAN ABSOLUTE AUTO 0.03 K/mm3 (0.00-0.10); IMMATURE GRAN PERCENT AUTO 0 % (0-1); LYMPHOCYTES ABSOLUTE AUTO 1.18 K/mm3 (0.84-5.20); LYMPHOCYTES PERCENT AUTO 16 % (21-46); MONOCYTES ABSOLUTE AUTO 0.64 K/mm3 (0.16-1.47); MONOCYTES PERCENT AUTO 9 % (4-13); Mean Corpuscular HGB 28.9 pg (26.0-34.0); Mean Corpuscular HGB Conc 32.1 g/dL (31.5-36.5); Mean Corpuscular Volume 90 fL (80-100); Mean Platelet Volume 9.9 fL (9.1-12.4); NEUTROPHILS ABSOLUTE AUTO 5.15 K/mm3 (1.96-9.15); NEUTROPHILS PERCENT AUTO 71 % (41-73); Platelet Count 164 K/mm3 (150-400); RDW Coefficient Variation 13.2 % (11.7-14.2); RDW Standard Deviation 43.2 fL (35.1-46.3); Red Blood Cell Count 4.39 M/mm3 (4.30-5.90); White Blood Cell Count 7.22 K/mm3 (4.00-11.30)
[2022-06-02 06:28] LABS: Albumin, Blood 3.2 g/dL (3.4-5.0); Bilirubin, Total 1.1 mg/dL (0.1-1.0); Bun/Creatinine Ratio 18.1 (12.0-20.0); Calcium, Blood 9.1 mg/dL (8.5-10.1); Creatinine, Blood 1.49 mg/dL (0.60-1.20); Globulin, Blood 3.2 g/dL (2.2-4.0); Potassium, Blood 4.2 mmol/L (3.5-5.5); Total Protein, Blood 6.4 g/dL (6.4-8.2)
--- NOTE | 2022-06-02 11:02 | NUR ---
Pt resting in bed and is significantly somnolent. Pt remains with his eyes closed through moderate level verbal stimuli and touch. Pt known to this designer/writer from previous hospital stay. Spoke with Pt's Primary RN Roberta and discussed case. Medications and PO intake being held due to his somnolence. Called and spoke with Pt's daughter Precious and provided update. Previous hospital stay for Pt daughter was decision maker due to spouse deferment. Precious reports spouse is now willinng to make decisions. Called and spoke with Pt's spouse Molly. Provided update and reviewed plan of care. Engaged in therapeutic conversation regarding goals of care. Educated on disease process including trajectory. Discussed considering hospice. Educated on hospice philosophy with V/U made by Molly. Molly expresses interest and would like to discuss further with her daughter Precious. Molly reports attempting to receive caregiver assistance for Pt. Offered suggestions. Discussed hospice agencies to choose from. Filiberto reports she will call back after discussing with daughter. Palliative Care will remain available.
--- NOTE | 2022-06-02 13:24 | NUR ---
PATIENT IS HAVEING BLOODY APPEARING URINE WITH CLOTTING IN THE TUBING OF THE ORTEGA. DR. WEAVER WAS UPDATED AND STATED TO IRRIGATE THE BLADDER WITH 100CC. ATTEMPTED. FLUID DOES NOT RETURN. BLADDER SCAN SHOWS 520-550. PATIENT HAS DECREASED LOC, BUT MUMBLES AND FIDGETS WHILE THIS IS BEING DONE. PATIENTS ENTERED THE ROOM DURING THIS IRRIGATION ATTEMPT. SHE IS CRYING, WHILE TALKING TO HER WHO IS NOT RESPONDING TO HER. DID DECIDE TO MAKE OUR PATIENT HOSPICE CARE. PHLEBOTOMY DIRECTOR IS TALKING TO AT THIS TIME. NURSING IS CONTACTING PROVIDER FOR DIRECTION REGARDING BLADDER/ORTEGA.
--- NOTE | 2022-06-02 15:23 | NUR ---
PATIENTS CODE STATUS WAS CHANGED TO DNR THIS AM, WITH ORDER WRITTEN BY DR. WEAVER. PALLIATIVE CARE IS GOING TO SEEK COMFORT CARE FOR THIS PATIENT. HE WILL BE DISCHARGING TO HOME ON HOSPICE TOMORROW-PER CARE MANAGERS/PALLIATIVE.
--- NOTE | 2022-06-02 15:44 | NUR ---
Comfort Care Visit Spoke with [facility]& Liamarcelo Zafar. Pt appears to be experiencing significant discomfort and comfort care may be beneficial. Spouse agreeable to comfort care if appropriate. Pt resting in bed with his eyes closed. Pt appears tense with continued jerking motions. Pt also has elevated temperature. Spouse at bedside. Discussed comfort care with spouse and educated on comfort care philosophy. Spouse in agreement with comfort care. Spoke with Dr Kim and discussed case. Placed comfort care order and comfort care order set per V/O from Dr Kim. Spoke with Primary RN Roberta and discussed case. Palliative Care will remain available.
--- NOTE | 2022-06-02 17:26 | NUR ---
PATIENT IS NOW DNR ON COMFORT CARE. THREE WAY CATH PLACED FOR EASIER IRRIGATION IF OCCLUDES. (SEE NURSING NOTE) PLAN IS TO DISCHARGE HOME TO HOSPICE TOMORROW. PRIMARY CARE NURSE PRACTITIONER CALLED TODAY AND STATED THAT SHE WOULD BE AVAILABLE TO SPEAK WITH INVESTIGATIONS CHIEF TOMORROW IF NEEDED.
--- NOTE | 2022-06-02 19:50 | NUR ---
PT PULLING ON RESTRAINTS. WITH FACIAL GRIMACE AND MOANING. MEDICATED PER EMAR. URINE DARK RED IN ORTEGA CATHETER TUBE AND DRAINAGE BAG. MANUAL IRRIGATED ORTEGA WITH 20 MLS AND TURNED UP BLADDER IRRIGATION.
--- NOTE | 2022-06-03 05:36 | NUR ---
SHIFT SUMMARY PT REMAINS AGITATED. MEDICATIONS HELP AND PT APPEARS TO MOSTLY REST WHEN UNDISTURBED BUT BECOMES VERY AGITATED WHEN STAFF ARE AT BEDSIDE. PT REMAINS IN RESTRAINTS HE IS VERY CONFUSED AND PULLS ON LINES WHEN NOT RESTRAINED. PT CONTINUES TO HAVE BLOOD IN HIS URINE. MOST LIKELY FROM PT PULLING ON CATHETER PREVIOUSLY. CONTINUOUS BLADDER IRRIGATION RUNNING. PT HAS ALSO REQUIRED MANUAL IRRIGATION X 2 THIS EVENING. URINE IMPROVING, NOW LIGHT RED. PT HAS BEEN MOSTLY NONVERBAL. BECOMES VERY TENSE AND SHAKES WHENEVER STAFF ATTEMPT TO PROVIDE CARE. MEDICATIONS PROVIDED FOR COMFORT. WILL CONTINUE TO MONITOR.
[2022-06-03] MEDS ORDERED: XALATAN2.5 ML BOTHEYES (09:25)
[2022-06-03] MEDS ORDERED: ATROPINE SULFATE2 M1 SL (09:27)
[2022-06-03] MEDS ORDERED: MORP20L SL (09:27)
[2022-06-03] MEDS ORDERED: TRANSDERM-SCOP1 EA10 TD (09:27)
--- NOTE | 2022-06-03 14:04 | NUR ---
Brief supportive visit. Transport has arrived. Pt resting with his eyes closed. Spoke with Primary RN and discussed case. No new concerns reported. Pt being D/C home with hospice. Palliative Care will remain available.
--- NOTE | 2022-06-03 14:33 | NUR ---
DISCHARGE PATIENT TRANSPORTED VIA GURNEY BY [facility]. PATIENT DISCHARGING HOME ON HOSPICE. [facility] TO HANDLE MEDICATIONS. FAMILY AT BEDSIDE DURING DISCHARGE. DISCHARGE PACKET GIVEN TO DAUGHTER. DAUGHTER SIGNED DISCHARGE. STATED UNDERSTANDING. IV REMOVED WITHOUT DIFFICULTY. RESTRAINTS REMOVED PRIOR TO DISCHARGE. PATIENT MEDICATED PRIOR TO DISCHARGE. ORTEGA PATENT AND DRAINING LIGHT RED COLORED BLOOD. EQUIPMENT DELIVERED TO PATIENT HOME.
== END 2022-06-03 14:04 | disposition hospice, home (50) | DRG 689 ==
LOC: ER 16:17 → MEDS 21:51
PROVIDERS: Student in an Organized Health Care Education/Training Program; ADMIT Internal Medicine
DX: N39.0 Urinary tract infection, site not specified (principal); G93.41 Metabolic encephalopathy; N17.9 Acute kidney failure, unspecified; E87.0 Hyperosmolality and hypernatremia; I25.10 Atherosclerotic heart disease of native coronary artery without angina pectoris; G31.83 Neurocognitive disorder with Lewy bodies; F02.80 Dementia in other diseases classified elsewhere, unspecified severity, without behavioral disturbance, psychotic disturbance, mood disturbance, and anxiety; G20 Parkinson's disease; Z51.5 Encounter for palliative care; R29.6 Repeated falls; E86.9 Volume depletion, unspecified; B37.9 Candidiasis, unspecified; E78.00 Pure hypercholesterolemia, unspecified; S30.0XXA Contusion of lower back and pelvis, initial encounter; W18.30XA Fall on same level, unspecified, initial encounter; E86.0 Dehydration; I12.9 Hypertensive chronic kidney disease with stage 1 through stage 4 chronic kidney disease, or unspecified chronic kidney disease; N18.30 Chronic kidney disease, stage 3 unspecified; Z87.01 Personal history of pneumonia (recurrent); Z90.49 Acquired absence of other specified parts of digestive tract; Z89.022 Acquired absence of left finger(s); Z87.891 Personal history of nicotine dependence; Z88.8 Allergy status to other drugs, medicaments and biological substances
CPT/HCPCS: 36415; 70450; 71111; 71260; 72125; 74177; 80053; 81001; 83880; 85025; 87086; 93005; 93010; 96365; 96372-59; 96375; 99285-25; A9270; J0696; J1630; J1650; J2060; J7030; Q9967